=== PATIENT | male | born 1970 | race Caucasian/White ===

== ENCOUNTER 2019-02-04 11:37 | Emergency (ER) | payer MEDICARE, MEDICAID ==
[~2019-02-04 11:37] MED LIST: EPINEPHRINE INJ 1 MG/10 ML DISP.SYRIN ONE; SODIUM BICARBONATE 8.4% INJ 50 MEQ/50 ML DISP.SYRIN ONE
[2019-02-04] MEDS ORDERED: CALCIUM GLUCONATE 1000 MG/10 ML INJ IV ONE ×2 (12:01→13:36)
[2019-02-04 12:10] LABS: HEMATOCRIT 40.2 % (37.9-51.0); HEMOGLOBIN 12.4 g/dL (13.5-17.0); MEAN CORPUSCULAR HEMOGLOBIN 31.5 pg (27.0-33.4); MEAN CORPUSCULAR HGB CONC 30.9 g/dL (32.0-36.0); MEAN CORPUSCULAR VOLUME 102 fl (80-97); PLATELET COUNT 128 10^3/uL (150-450); RED BLOOD COUNT 3.95 10^6/uL (4.35-5.55); RED CELL DISTRIBUTION WIDTH 14.4 % (11.5-14.0); WHITE BLOOD COUNT 7.9 10^3/uL (4.0-10.5)
[2019-02-04 12:12] LABS: INTERNATIONAL RATION (INR) 1.45; PROTHROMBIN TIME 18.4 SEC (11.4-15.4)
--- NOTE | 2019-02-04 12:17 | ER Document Report ---
ED Cardiac - General Stated Complaint: POST ARREST Time Seen by Provider: 02/04/19 12:09 Primary Care Provider: JULIANA SHARPE MD [Primary Care Provider] - Follow up as needed Information source: Patient Notes: 48-year-old male whose presents with EMS status post cardiac arrest. Patient supposedly was found by family after they heard a "thump". Patient was found initially to be in asystole and was provided epinephrine. Patient supposedly converted to a shockable rhythm and was given 1 shock as well as another dose of epinephrine with return of spontaneous circulation. CPR was in progress prior around 20 minutes. History only if possible drug related problems. Patient is on Ativan and oxycodone at home. Patient has been to rehabilitation centers in the past according to EMS after speaking with family. No known cardiac history except possibly mitral valve prolapse. Patient has had no recent illnesses according to EMS. TRAVEL OUTSIDE OF THE [place] IN LAST 30 DAYS: No - Related Data Allergies/Adverse Reactions: No Known Allergies Allergy (Verified 08/04/15 11:39) Past Medical History - Social History Smoking Status: Unknown if Ever Smoked Family History: Reviewed & Not Pertinent Psychiatric Medical History: Reports: Hx Depression - anxiety - Immunizations Hx Diphtheria, Pertussis, Tetanus Vaccination: Yes Review of Systems - Review of Systems -: Yes ROS unobtainable due to patient's medical condition Physical Exam - Vital signs Vitals: Pulse Ox 98 02/04/19 11:37 Notes: Reviewed vital signs and nursing note as charted by RN. CONSTITUTIONAL: Vision is intubated and unresponsive HEAD: Normocephalic; atraumatic EYES: 4 mm and unreactive bilaterally ENT: Alejo airway is in place NECK: Supple without meningismus; no cervical lymphadenopathy, no masses CARD: Regular rate and rhythm; no murmurs; symmetric distal pulses RESP: Breath sounds bilaterally with manual bagging. No rhonchi or rales appreciated ABD/GI: Normal bowel sounds; non-distended; soft, no palpable organomegaly or masses BACK: The back appears normal EXT: Normal ROM in all joints; no edema SKIN: No acute lesions noted NEURO: No spontaneous movements noted Course - Re-evaluation Re-evalutation: Given the history and physical examination the patient was placed on the monitor with frequent blood pressure reassessments with a liter of fluid bolus as well as 2 mg of Narcan provided. Trachea midline. Bilateral breath sounds. Blood pressure 136/64. Patient is on 4 of levo fed by EMS. Portable x-ray performed showing a midline trachea with bilateral clear lungs with some minimal cardiomegaly. EKG performed showing lateral ST depressions. Cardiology was called immediately and came to bedside. EKG shows heart of 57, normal sinus rhythm, ST depressions noted in leads I, 2, V3 through V6 Patient subsequently had a decrease in blood pressure with loss of pulses. CPR resumed. On epinephrine provided. Bicarb and calcium gluconate provided. Return of spontaneous circulation. Blood pressure repeat 197/100. Patient is being transferred from a Levophed drip to an epinephrine drip. Patient has a 16, 18, and IO IV in place. Heart rate in the 60s. Repeat EKG is pending. Given the above history and physical examination we will take the patient to the CT scan I will obtain a CT scan of the head as well as the chest. The CT scan of the head shows no obvious bleed, we will start the patient on a heparin bolus and drip. Cardiology believes that the patient requires transfer. I believe this is reasonable. Basic labs and drug screen pending. 02/04/19 12:14 Blood pressure is stable. Patient is on an epinephrine drip. I am providing 1 L of cold saline. We will most likely provide axillary and groin ice packs. Patient is being taken to CT scan to rule out the possibility of an intracerebral bleed before applying heparin. 02/04/19 12:18 Repeat EKG shows a rate of 86, normal sinus rhythm, normal axis, no obvious ST elevation or depression. I relate this to the big data admin. 02/04/19 12:25 Speaking with the family in the family waiting room it appears that the patient supposedly was "up and down" all night. Patient was not feeling well and went back to bed. They state that the patient has received new prescriptions but they are unsure what those prescriptions are. No family history of cerebral an eurysms or blood clotting disorders. Supposedly the patient has had some "shortness of breath with wheezing" over this last week. No history of asthma or emphysema. CT head and chest are pending. Blood pressures currently stable on an epinephrine drip. Patient has not been given any sedative medications and is currently not having any spontaneous movement of respirations over the monitor. Repeat EKG has normalized as above. 02/04/19 12:52 Patient's blood pressure dipped down into the 80s. He did not lose pulses. Heart rate is 72. I have increased the epinephrine drip. 02/04/19 13:12 Labs as recorded. pH is recorded. I will provide another amp of bicarb. Transaminitis as recorded. Blood cultures have been sent. I have added Zosyn and N acetyle cysteine. Tylenol level is pending. 02/04/19 13:25 Called and spoken to the jira developer Dr. Lima. He was very polite and helpful. I explained the full history and physical. He does agree with starting the N- acetylcysteine therapy. He is comfortable with starting a heparin bolus and drip if the CT scan shows no acute hemorrhage. We will attempt to airflight the patient. 02/04/19 14:15 Vital signs are stable. EMS called and states after further investigation of the surrounding area they found out that the patient supposedly filled an unknown quantity of Percocet 3 days ago that is currently empty. N- acetylcysteine is being given. Supposedly there also "needles and baggies" found in the room. 02/04/19 14:17 The radiologist called me and states that she sees anoxic brain injury with no obvious bleed as well as no obvious dissection or PE. We will provide a bolus of heparin. - Vital Signs Vital signs: Temp Pulse Resp BP Pulse Ox 15 166/74 H 100 02/04/19 13:56 02/04/19 13:56 02/04/19 13:56 - Laboratory Result Diagrams: 02/04/19 11:45 02/04/19 11:45 Laboratory results interpreted by me: 02/04/19 02/04/19 02/04/19 11:45 11:45 11:45 RBC 3.95 L Hgb 12.4 L MCV 102 H MCHC 30.9 L RDW 14.4 H Plt Count 128 L Monocytes % (Manual) 2 L Metamyelocytes % 2 H PT Carbonic Acid ABG pH ABG pCO2 ABG pO2 ABG HCO3 ABG Total CO2 ABG O2 Saturation Potassium 5.4 H Carbon Dioxide 17 L Anion Gap 25 H Creatinine 1.84 H Est GFR ( Amer) 48 L Est GFR (Non-Af Amer) 39 L Glucose 162 H Lactic Acid 14.5 H Total Bilirubin 1.5 H Direct Bilirubin 1.1 H AST 3967 H ALT 4011 H Creatine Kinase 226 H Urine Protein Urine Glucose (UA) Urine Blood Urine Urobilinogen Salicylates < 1.0 L Acetaminophen < 10 L 02/04/19 02/04/19 02/04/19 11:45 12:30 12:34 RBC Hgb MCV MCHC RDW Plt Count Monocytes % (Manual) Metamyelocytes % PT 18.4 H Carbonic Acid 2.79 H ABG pH 6.90 L* ABG pCO2 92.6 H* ABG pO2 357.5 H ABG HCO3 17.8 L ABG Total CO2 20.7 L ABG O2 Saturation 99.5 H Potassium Carbon Dioxide Anion Gap Creatinine Est GFR ( Amer) Est GFR (Non-Af Amer) Glucose Lactic Acid Total Bilirubin Direct Bilirubin AST ALT Creatine Kinase Urine Protein 100 H Urine Glucose (UA) 150 H Urine Blood SMALL H Urine Urobilinogen 2.0 H Salicylates Acetaminophen Critical Care Note - Critical Care Note Total time excluding time spent on procedures (mins): 110 Discharge - Discharge Clinical Impression: Cardiac arrest, Acute hepatitis Acute renal failure Qualifiers: Acute renal failure type: unspecified Qualified Code(s): N17.9 - Acute kidney failure, unspecified Condition: Critical Disposition: [facility] Referrals: JULIANA SHARPE MD [Primary Care Provider] - Follow up as needed
--- NOTE | 2019-02-04 12:29 | EKG REPORT ---
SEVERITY:- BORDERLINE ECG - SINUS RHYTHM NONSPECIFIC INTRAVENTRICULAR CONDUCTION DELAY : Confirmed by: Gigi Lord MD 04-Feb-2019 12:28:23
[2019-02-04 12:31] LABS: ALBUMIN 3.7 g/dL (3.5-5.0); ALKALINE PHOSPHATASE 53 U/L (38-126); BILIRUBIN,DIRECT 1.1 mg/dL (0.0-0.4); BILIRUBIN,TOTAL 1.5 mg/dL (0.2-1.3); BLOOD UREA NITROGEN 18 mg/dL (7-20); CALCIUM 8.9 mg/dL (8.4-10.2); CREATINE KINASE 226 U/L (55-170); GLUCOSE 162 mg/dL (75-110); POTASSIUM 5.4 mmol/L (3.6-5.0); TOTAL PROTEIN 6.3 g/dL (6.3-8.2)
--- NOTE | 2019-02-04 12:34 | EKG REPORT ---
SEVERITY:- ABNORMAL ECG - SINUS RHYTHM NONSPECIFIC IVCD WITH LAD ANTEROLATERAL ST DEPRESSIONS, CLINICAL CORRELATION NEEDED, SUSPECT ISCHEMIA IN LM COR ARTERY. : Confirmed by: Gigi Lord MD 04-Feb-2019 12:34:25
[2019-02-04 12:36] LABS: CARBON DIOXIDE 17 mmol/L (22-30); CHLORIDE 98 mmol/L (98-107); SODIUM 139.6 mmol/L (137-145)
[2019-02-04 12:39] LABS: ABSOLUTE LYMPHOCYTES# (MANUAL) 1.9 10^3/uL (0.5-4.7); ABSOLUTE MONOCYTES # (MANUAL) 0.2 10^3/uL (0.1-1.4); ABSOLUTE NEUTROPHILS# (MANUAL) 5.8 10^3/uL (1.7-8.2); BAND NEUTROPHILS % (MANUAL) 5 % (3-5); BASOPHILS % (MANUAL) 0 % (0-2); EOSINOPHILS % (MANUAL) 0 % (0-6); LYMPHOCYTES % (MANUAL) 22 % (13-45); METAMYELOCYTES % (MANUAL) 2 % (0); MONOCYTES % (MANUAL) 2 % (3-13); SEGMENTED NEUTROPHILS % (MAN) 67 % (42-78); TOTAL CELLS COUNTED 100
[2019-02-04 12:40] LABS: PLATELET COMMENT DECREASED; RBC MORPHOLOGY COMMENT MN
[2019-02-04 12:41] LABS: ACETAMINOPHEN < 10 ug/mL (10-30); ALCOHOL < 10 mg/dL (NONE DETECTED); SALICYLATE < 1.0 mg/dL (2.0-20.0)
[2019-02-04 12:43] LABS: CREATINE KINASE MB 2.93 ng/mL (<4.55)
[2019-02-04 12:46] LABS: TROPONIN I 0.188 ng/mL
[2019-02-04 13:05] LABS: APPEARANCE,URINE CLOUDY; BILIRUBIN,URINE NEGATIVE (NEGATIVE); GLUCOSE, URINE 150 mg/dL (NEGATIVE); KETONES,URINE NEGATIVE (NEGATIVE); LEUKOCYTE ESTERASE,URINE NEGATIVE (NEGATIVE); NITRITE,URINE NEGATIVE (NEGATIVE); PROTEIN,URINE 100 mg/dL (NEGATIVE); URINE SPECIFIC GRAVITY 1.019
[2019-02-04 13:06] LABS: ALANINE AMINOTRANSFERASE 4011 U/L (21-72); ASPARTATE AMINO TRANSFERASE 3967 U/L (17-59)
[2019-02-04 13:07] LABS: ARTERIAL BLOOD FIO2 100%; ARTERIAL BLOOD H2CO3 2.79 mmol/L (1.05-1.35); ARTERIAL BLOOD HCO3 17.8 mmol/L (20-24); ARTERIAL BLOOD O2 SATURATION 99.5 % (94-98); ARTERIAL BLOOD PO2 357.5 mmHg (80-100); ARTERIAL BLOOD TOTAL CO2 20.7 mmol/L (23-27)
[2019-02-04 13:09] LABS: ARTERIAL BLOOD PCO2 92.6 mmHg (35-45)
[2019-02-04 13:10] LABS: COLOR,URINE YELLOW
[2019-02-04 13:10] LABS: ANION GAP 25 (5-19)
[2019-02-04] MEDS ORDERED: PIPERACILLIN/TAZOBACTAM 3.375 GM VIAL IV ONE (13:13)
[2019-02-04] MEDS ORDERED: SODIUM BICARBONATE 8.4% INJ 50 MEQ/50 ML DISP.SYRIN IV ONE (13:13)
--- NOTE | 2019-02-04 13:23 | RADIOLOGY REPORT (SQ) ---
EXAM DESCRIPTION: CHEST SINGLE VIEW COMPLETED DATE/TIME: 02/04/2019 12:04 pm REASON FOR STUDY: T2 POST INTUBATION COMPARISON: None. EXAM PARAMETERS: NUMBER OF VIEWS: One view. TECHNIQUE: Single frontal radiographic view of the chest acquired. RADIATION DOSE: NA LIMITATIONS: None. FINDINGS: LUNGS AND PLEURA: Minimal diffuse interstitial pulmonary opacity. MEDIASTINUM AND HILAR STRUCTURES: No masses. Contour normal. HEART AND VASCULAR STRUCTURES: Cardiomegaly. BONES: No acute findings. HARDWARE: None in the chest. OTHER: No other significant finding. IMPRESSION: Cardiomegaly with minimal diffuse interstitial pulmonary opacity, likely minimal edema. No support apparatus are present on current examination per stated indication, however there is endo tracheal and orogastric intubation on subsequent radiograph. TECHNICAL DOCUMENTATION: JOB ID: [id number] [employer]- All Rights Reserved Reading location - IP/workstation name: [email or web address]
--- NOTE | 2019-02-04 13:24 | RADIOLOGY REPORT (SQ) ---
EXAM DESCRIPTION: CHEST SINGLE VIEW COMPLETED DATE/TIME: 02/04/2019 1:00 pm REASON FOR STUDY: ET OG PLACEMENT COMPARISON: None. EXAM PARAMETERS: NUMBER OF VIEWS: One view. TECHNIQUE: Single frontal radiographic view of the chest acquired. RADIATION DOSE: NA LIMITATIONS: None. FINDINGS: Interval placement of endotracheal tube, with tip projecting over the mid trachea, and eso phagogastric tube with tip below the diaphragm but side port above the gastroesophageal junction. Re commend advancement. Cardiomegaly with minimal diffuse interstitial pulmonary opacity as on prior. IMPRESSION: Interval placement of endotracheal tube, with tip projecting over the mid trachea, and e sophagogastric tube with tip below the diaphragm but side port above the gastroesophageal junction. Recommend advancement. Cardiomegaly with minimal diffuse interstitial pulmonary opacity as on prior. TECHNICAL DOCUMENTATION: JOB ID: [id number] [employer]- All Rights Reserved Reading location - IP/workstation name: [email or web address]
[2019-02-04 13:29] LABS: URINE AMPHETAMINES SCREEN NEGATIVE; URINE BARBITURATES SCREEN NEGATIVE; URINE BENZODIAZEPINES SCREEN UNCONFIRMED POSITIVE; URINE COCAINE SCREEN UNCONFIRMED POSITIVE; URINE MARIJUANA (THC) SCREEN NEGATIVE; URINE METHADONE SCREEN NEGATIVE; URINE PHENCYCLIDINE SCREEN NEGATIVE
[2019-02-04] MEDS ORDERED: DEXTROSE 5%-WATER 250 ML with EPINEPHRINE/PF 1 MG IV PRN ×2 (13:35)
[2019-02-04] MEDS ORDERED: NALOXONE HCL INJ 2 MG/2 ML DISP.SYRIN IV ONE (13:35)
[2019-02-04] MEDS ORDERED: DEXTROSE 5%-WATER 250 ML with NOREPINEPHRINE BITARTRATE 4 MG IV PRN ×2 (13:35)
[2019-02-04] MEDS ORDERED: NORMAL SALINE 1000 ML 1,000 ML IV ONE (13:54)
[2019-02-04] MEDS ORDERED: HEPARIN SOD (PORCINE) 1,000 UNIT/ML 10 ML VIAL IV ONE (14:20)
--- NOTE | 2019-02-04 14:29 | RADIOLOGY REPORT (SQ) ---
EXAM DESCRIPTION: CT HEAD WITHOUT COMPLETED DATE/TIME: 02/04/2019 1:47 pm REASON FOR STUDY: T2 POST ARREST COMPARISON: None. TECHNIQUE: Axial images acquired through the brain without intravenous contrast. Images reviewed wi th bone, brain and subdural windows. Additional sagittal and coronal reconstructions were generated. Images stored on PACS. All CT scanners at this facility use dose modulation, iterative reconstruction, and/or weight based d osing when appropriate to reduce radiation dose to as low as reasonably achievable (ALARA). [facility]: Dose Right [facility]: CareDose [facility]: Dose Right [facility]: Teradose 4D [facility]: [employer] RADIATION DOSE: CT Rad equipment meets quality standard of care and radiation dose reduction techniq ues were employed. CTDIvol: 48.6 mGy. DLP: 929 mGy-cm. mGy. LIMITATIONS: None. FINDINGS: Post resuscitation. There is effacement of the basilar cisterns, sylvian fissures common ventricles from diffuse cerebral edema. Loss of grissom-white differentiation worrisome for diffuse brain anoxic injury. The dural esha ous sinuses common vessels along the sylvian fissure and tentorium appear high density compared to th e adjacent brain from diffuse cerebral edema. These findings were discussed with Dr. Murguia in the emergency room, 1415 hours 02/04/2019. IMPRESSION: Diffuse acute anoxic injury. EVIDENCE OF ACUTE STROKE: NO. COMMENT: Quality ID # [id number]: Final reports with documentation of one or more dose reduction techniques (e.g., Automated exposure control, adjustment of the mA and/or kV according to patient size, use of iterative reconstruction technique) TECHNICAL DOCUMENTATION: JOB ID: [id number] [employer]- All Rights Reserved Reading location - IP/workstation name: [email or web address]
[2019-02-04] MEDS ORDERED: ACETYLCYSTEINE INJ 6000 MG/30 ML IV ONE ×3 (14:30→19:30)
--- NOTE | 2019-02-04 14:36 | RADIOLOGY REPORT (SQ) ---
EXAM DESCRIPTION: CTA CHEST COMPLETED DATE/TIME: 02/04/2019 1:53 pm REASON FOR STUDY: T2 POST ARREST COMPARISON: Same day chest radiograph TECHNIQUE: CT scan of the chest performed using helical scanning technique with dynamic intravenous contrast injection. Images reviewed with lung, soft tissue and bone windows. Reconstructed coronal and sagittal MPR images reviewed. Additional 3 dimensional post-processing performed to develop Maximal Intensity Projection images (MD P). All images stored on PACS. All CT scanners at this facility use dose modulation, iterative reconstruction, and/or weight based d osing when appropriate to reduce radiation dose to as low as reasonably achievable (ALARA). [facility]: Dose Right [facility]: CareDose [facility]: Dose Right [facility]: Teradose 4D [facility]: [employer] CONTRAST TYPE AND DOSE: contrast/concentration: Isovue 350.00 mg/ml; Total Contrast Delivered: 74.0 ml; Total Saline Delivered: 90.0 ml Contrast bolus optimized for the pulmonary arteries. Not diagnostic for the aorta. RENAL FUNCTION: None required. The patient is less than 50 years old. RADIATION DOSE: CT Rad equipment meets quality standard of care and radiation dose reduction techniq ues were employed. CTDIvol: 15.5 - 24.6 mGy. DLP: 628 mGy-cm. . LIMITATIONS: None. FINDINGS: LUNGS AND PLEURA: There are scattered centrilobular nodules, most dense and confluent in t he right lung base, with small associated bilateral pleural effusions. AORTA AND GREAT VESSELS: No aneurysm. Contrast bolus not optimized for the aorta. HEART: No pericardial effusion. No significant coronary artery calcifications. PULMONARY ARTERIES: No emboli visualized in the main pulmonary arteries or the segmental branches. HILAR AND MEDIASTINAL STRUCTURES: No identified masses or abnormal nodes. HARDWARE: None in the chest. UPPER ABDOMEN: Hepatic steatosis. THYROID AND OTHER SOFT TISSUES: No masses. No adenopathy. BONES: No acute or significant finding. 3D MIPS: Confirm above findings. OTHER: Endotracheal tube with tip position in the mid trachea. IMPRESSION: 1. Negative examination for pulmonary embolism. 2. Scattered centrilobular nodules, most dense and confluent in the right lung base with small assoc iated bilateral pleural effusions. Findings likely consistent with aspiration and fluid overload in the setting of cardiac arrest and resuscitation. COMMENT: Quality ID # [id number]: Final reports with documentation of one or more dose reduction techniques (e.g., Automated exposure control, adjustment of the mA and/or kV according to patient size, use of iterative reconstruction technique) TECHNICAL DOCUMENTATION: JOB ID: [id number] [employer]- All Rights Reserved Reading location - IP/workstation name: [email or web address]
[2019-02-04 15:10] VITALS: BP 103/37
== END 2019-02-04 15:09 | disposition short-term general hospital (02) ==
LOC: ER 11:37
PROC: 0BH17EZ Insertion of Endotracheal Airway into Trachea, Via Natural or Artificial Opening (ICD-10-PCS; principal; 2019-02-04)
DX: I46.9 Cardiac arrest, cause unspecified (principal); B17.9 Acute viral hepatitis, unspecified; N17.9 Acute kidney failure, unspecified; Z79.899 Other long term (current) drug therapy
CPT/HCPCS: 93005; 99291; 99292; 92950; 51702; 96375; 96365; 96366; 96368; 36415; 87040; 82553; 80307 ×4; 82803; 82550; 85025; 85610; 80053; 81001; 84484; 83605; 71045; 70450; 71275; 94660; 93010; 31500; J0171 ×2; J1644; J3490 ×2; J2310; J0132; J7060; J7030; J2543